=== PATIENT | female | born 1975 | race Caucasian/White ===

== ENCOUNTER → 2020-04-14 12:13 | Outpatient (CLI) | payer OTHER, SELFPAY ==
--- NOTE | ~2020-04-14 | XR_ITS ---
XR knee RT 3V 04/14/2020 12:29 Indication: Right knee pain Procedure: 3 views right knee Comparison: No prior studies for comparison. Findings: There is mild osteoarthritis of the right knee. No acute fracture or traumatic malalignment . No significant joint effusion. No radiopaque foreign bodies. Impression: 1: Mild osteoarthritis of the right knee. Reviewed, dictated and finalized at location B. Impression: 1: Mild osteoarthritis of the right knee.
== END ==
PROVIDERS: PCP Family Medicine; Visit Provider Physician Assistant
DX: S89.90XA Unspecified injury of unspecified lower leg, initial encounter (principal); M17.11 Unilateral primary osteoarthritis, right knee
CPT/HCPCS: 73562

== ENCOUNTER 2020-07-18 16:58 | Outpatient (CLI) | payer OTHER, SELFPAY ==
--- NOTE | ~2020-07-18 | MR_ITS ---
EXAMINATION: MR knee RT wo con DATE: 07/18/2020 19:02 INDICATION: Right knee pain. TECHNIQUE: Magnetic resonance imaging (MRI) of the right knee was performed without intravenous contr ast. Sequences included axial PD-weighted FS FSE, coronal PD-weighted FSE and PD-weighted FS FSE, sag ittal PD-weighted FSE, and sagittal T2-weighted FS FSE. COMPARISON: Right knee radiographs 04/14/2020 FINDINGS: Medial compartment: Medial meniscus is normal. There is cartilage surface irregularity of tibial condyle and femoral cond yle. There are tiny marginal osteophytes. Lateral compartment: There is a horizontal tear involving anterior horn and body of lateral meniscus. There is full-thickn ess cartilage loss of tibial condyle and femoral condyle involving the central articular surfaces wit h mild subchondral edema-like marrow signal intensity. There is extensive partial thickness cartilage loss of femoral condyle and tibial condyle. Osteophytes are noted. Patellofemoral compartment: There is full-thickness cartilage loss of patellar lateral facet and median ridge and shallow partial -thickness cartilage loss of patellar medial facet. There is cartilage surface irregularity of trochl ea. Osteophytes are noted. Ligaments and tendons: Anterior and posterior cruciate ligaments are normal. Medial collateral ligament is normal. There are changes of prior sprain of fibular collateral ligament characterized by thickening and increased sig nal intensity proximally. There is mild patellar tendinopathy. Fluid: There is a large knee joint effusion. There is moderate prepatellar and superficial infrapatellar bur sitis. There is subcutaneous edema about the knee. IMPRESSION: 1. Severe chondrosis of lateral and patellofemoral compartments and mild chondrosis of medial compart ment. 2. Tear of the lateral meniscus. 3. Large knee joint effusion. Reviewed, dictated and finalized at location A. 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 Severe chondrosis of lateral and patellofemoral compartments and mild chondr osis of medial compartment. 2. Tear of the lateral meniscus. 3. Large knee joint effusion.
== END 2020-07-18 16:59 ==
LOC: MICIMG 17:01
PROVIDERS: PCP Family Medicine; Visit Provider Nurse Practitioner Family
DX: M25.461 Effusion, right knee (principal); S83.281A Other tear of lateral meniscus, current injury, right knee, initial encounter; X58.XXXA Exposure to other specified factors, initial encounter
CPT/HCPCS: 73721

== ENCOUNTER 2020-08-08 11:15 | Outpatient (CLI) | payer OTHER, SELFPAY ==
--- NOTE | 2020-08-08 11:19 | ECG_ITS ---
Measurements Intervals [place] Rate: 86 P: 42 CT: 180 QRS: 1 QRSD: 119 T: 0 QT: 351 QTc: 421 Interpretive Statements SINUS RHYTHM INCOMPLETE RIGHT BUNDLE BRANCH BLOCK VOLTAGE CRITERIA FOR LVH BORDERLINE ECG Electronically Signed On 08-08-2020 12:04:15 RECLAIMER by Dez Ray D.O.
[2020-08-08 12:19] LABS: Anion Gap 6 mmol/L (8-16); Blood Urea Nitrogen 12 mg/dL (7-17); Calcium 9.2 mg/dL (8.4-10.2); Carbon Dioxide 32 mmol/L (22-30); Chloride 99 mmol/L (98-107); Estimated Glomerular Filt Rate > 60; Glucose 129 mg/dL (65-105); Potassium 3.7 mmol/L (3.4-5.0); Sodium 137 mmol/L (137-145)
[2020-08-08 12:28] LABS: Hemoglobin A1C 6.5 % (<5.7)
== END 2020-08-08 11:16 | disposition home or self-care (01) ==
LOC: ANHSURGERY 11:19
PROVIDERS: Anesthesiology; PCP Family Medicine; Visit Provider Orthopaedic Surgery
DX: Z01.818 Encounter for other preprocedural examination (principal); Z20.822 Contact with and (suspected) exposure to COVID-19; E11.9 Type 2 diabetes mellitus without complications
CPT/HCPCS: 36415; 80048; 83036; 93005

== ENCOUNTER 2020-08-09 04:28 | Outpatient (CLI) | payer OTHER, SELFPAY ==
[2020-08-09 19:32] LABS: SARS-CoV-2 RNA PCR Negative
== END 2020-08-09 04:29 | disposition home or self-care (01) ==
LOC: ANHCOVIDDT 04:28
PROVIDERS: PCP Family Medicine; Visit Provider Orthopaedic Surgery
DX: Z01.812 Encounter for preprocedural laboratory examination (principal); Z20.822 Contact with and (suspected) exposure to COVID-19
CPT/HCPCS: C9803; U0003

== ENCOUNTER 2020-08-13 02:12 | Day surgery (SDC) | payer OTHER, SELFPAY ==
[2020-08-06 18:40] VITALS: BMI 54.8
[2020-08-13] VITALS (11 sets, daily range): BP systolic 102–147; BP diastolic 62–95; PULSE 76–91; RESP 16–20; TEMP 36.6–36.8; O2SAT 92–100
--- NOTE | 2020-08-13 07:23 | WPDHPUPDATE1 ---
History and Physical Update Update Date/Time: 08/13/20 07:23 History and Physical has been reviewed, including an updated exam of the patient. There are NO changes in the patient's condition. Risks, benefits, and alternatives have been discussed and questions answered. Patient agrees to proceed with procedure.
[2020-08-13] MEDS: LACTATED RINGERS 1,000 ML 30 ML IV CONT ×2 (08:45→13:04)
--- NOTE | 2020-08-13 09:04 | WPDANESEPPF ---
Anes - Initial Pre Proc Eval Procedure: Operation Date: 08/13/20 10:00 Proposed Procedures p Right Knee Arthroscopy, Proceed As Indicated - Fernandez Marmolejo MD Date/Time: 08/13/20 09:04 Surgeon: Fernandez Marmolejo MD Pre Op Diagnosis: Right Knee Lateral Meniscus Tear Patient Data Age: 44 Gender: F Height: 5 ft 2.5 in Weight: 138.35 kg Allergies Allergy/AdvReac Type Severity Reaction Status Date / Time Penicillins AdvReac Mild ITCHY RASH Verified 08/08/20 14:49 morphine AdvReac Unknown DIFFICULT Verified 08/08/20 14:49 TO AROUSE Home Medications Medication Instructions Recorded Confirmed Type fluticasone propionate [Flonase 1 spray NASAL DAILY #9.9 ml 08/01/19 08/10/20 Rx Allergy Relief] fluticasone propionate 110 1 puff INHALATION Q12H #12 gm 09/21/19 08/10/20 Rx mcg/actuation HFA aerosol inhaler blood sugar diagnostic #100 each 01/01/20 08/10/20 Rx pen needle, diabetic 31 gauge x See Rx Instructions .ROUTE 03/17/20 08/10/20 Rx 5/16 .COMPLEX #100 each insulin lispro protamine-lispro See Rx Instructions .ROUTE 05/22/20 08/10/20 Rx 100 unit/mL (75-25) subcutaneous .COMPLEX #33 milliliter pen loratadine [Claritin] 10 mg PO DAILY 08/06/20 08/10/20 History albuterol sulfate 90 mcg/actuation 2 puff INHALATION QID PRN #18 g 08/08/20 08/08/20 Rx aerosol inhaler chlorhexidine gluconate 4 % 1 applic TOPICAL ONCE #237 ml 08/08/20 08/08/20 Rx topical liquid Patient hx anesthesia problems: none Family hx anesthesia problems: none PMFSH Past Medical History Medical History Asthma Chondromalacia, patella Degenerative joint disease of knee Diabetes mellitus Effusion of right knee joint Lateral meniscus tear Obesity Patellofemoral syndrome Right knee injury Right knee pain Shortness of breath Vision abnormalities Family History Family History Grandparent Hypertension Carcinoma of colon Family history of type 2 diabetes mellitus Other Diabetes mellitus Family history of arthritis Family history of congestive heart failure Family history of coronary artery disease Family history of malignant neoplasm Family history of malignant neoplasm of breast Social History Social History Smoking packs per day: 0.5 Smoking cigarettes per day: 10.0 Years smoked: 6 Smoking pack-years: 3.00 Smoking status: Former smoker Tobacco type: cigarettes Second hand tobacco smoke exposure: No Smoking end date: 09/01/03 Alcohol intake: current Alcohol use details: 1 GLASS WINE/YEAR Substance use: former Other substance usage details: CBD GUMMIES 2019 FOR KNEE PAIN-DID NOT WORK SO STOPPED Last use: JUL, 2020 Living arrangements: with family Gender identity (if verbalized by the patient): Female Spiritual care concerns: No Anes - Eval Final PreProcedure Day of Procedure 08/13/20 09:04 Patient weight: morbidly obese Heart: regular rate and rhythm Lungs: clear to auscultation Airway: Mallampati scale class II Neurological: alert and oriented Last oral intake: >/= 8 hours ASA classification: III Emergent: no Anesthetic plan: proceed Anesthesia type and monitoring: general LMA and standard monitoring Informed Consent: The patient's anesthetic plan and its attendant risks and benefits were discussed with the patient/family/POA. Questions were solicited and answers provided to the satisfaction of the patient/family/POA.
[2020-08-13] MEDS: ACETAMINOPHEN 500 MG TABLET 1000 MG PO (09:56)
[2020-08-13] MEDS: CELECOXIB 200 MG CAPSULE PO (09:57)
[2020-08-13 10:27] LABS: Glucose Point of Care 162 (65-105)
[2020-08-13] MEDS: CLINDAMYCIN 900 MG/D5W 50 ML 900 MG/50 ML PIGGYBACK 50 MG IVPB (10:44)
[2020-08-13] MEDS: BUPIVACAINE HCL 0.5% PF 30 ML VIAL INFILTRATE (11:20)
--- NOTE | 2020-08-13 11:57 | P.OP_ITS ---
Procedure Note - Detailed Date of procedure: 08/13/20 Pre-op diagnosis: Right Knee Lateral Meniscus Tear, CHONDROMALACIA Post-op diagnosis: same Procedure performed: RIGHT KNEE SCOPE WITH PARTIAL LATERAL MENISCECTOMY AND MAJOR SYNOVECTOMY Description of procedure: PATIENT WAS TAKEN TO THE OR. RIGHT LEG WAS PREPPED AND DRAPED STERILE. TROCARS WERE PLACED IN THE USUAL FASHION. CAMERA WAS INTRODUCED. THERE WAS CHONDROMALACIA TO THE PATELLA FEMORAL JOINT. THERE WAS A LOT OF SYNOVITIS IN ALL COMPARTMENTS. THE MEDIAL COMPARTMENT MINIMAL CHONDROMALACIA TO THE MED FEMORAL CONDYLE. THERE WAS NO MEDIAL MENISCUS TEAR. THE ACL WAS INTACT. THE LATERAL MENISCUS WAS TORN AT THE ANTERIOR HORN AND UNDERWENT RESECTION OF ABOUT 30 % THE LAT FEMORAL CONDYLE UNDERWENT CHONDROPLASTY. THERE WAS AN OSTEOCHONDRAL DEFECT WITH FULL THICKNESS TEAR AT DIMITRI TH THE FEMORAL CONDYLE AND LATERAL PLATEAU. A SYNOVECTOMY WAS PREFORMED. THE PATELLO FEMORAL JOINT UNDERWENT CHONDROPLASTY. SYNOVECTOMY WAS PREFORMED IN THE SUPERIOR MEDIAL COMPARTMENT. THE WOUNDS WERE APPROXIMATED WITH 4.0 NYLON. STERILE DRESSING WAS APPLIED. PATIENT WAS EXTUBATED. Anesthesia: GLMA Surgeon: Fernandez Marmolejo MD Estimated blood loss (mL): 5 Complications: No immediate complications Condition: stable Disposition: PACU
[2020-08-13] MEDS: fentaNYL CITRATE INJ (*CRX) 100 MCG/2 ML VIAL 25 MCG IV PUSH ×8 (12:16→12:46)
[2020-08-13 12:18] LABS: Glucose Point of Care 198 (65-105)
[2020-08-13] MEDS: HYDROmorphone HCL INJ (*CRX) 1 MG/ML SYR 0.5 MG IV PUSH ×2 (12:53→14:24)
[2020-08-13] MEDS: oxyCODONE HCL (*CRX) 5 MG TAB IR PO (13:13)
[2020-08-13] MEDS: KETOROLAC 30 MG/ML VIAL (*BKC) IV PUSH (13:39)
== END 2020-08-13 15:25 | disposition home or self-care (01) ==
PROVIDERS: PCP Family Medicine; Visit Provider Orthopaedic Surgery
PROC: (CPT 29870; principal; 2020-08-13 10:00)
DX: S83.281A Other tear of lateral meniscus, current injury, right knee, initial encounter (principal); X58.XXXA Exposure to other specified factors, initial encounter; M94.261 Chondromalacia, right knee; M65.861 Other synovitis and tenosynovitis, right lower leg; J45.909 Unspecified asthma, uncomplicated; E11.9 Type 2 diabetes mellitus without complications; E66.01 Morbid (severe) obesity due to excess calories; Z68.43 Body mass index [BMI] 50.0-59.9, adult; Z79.4 Long term (current) use of insulin; Z87.891 Personal history of nicotine dependence
CPT/HCPCS: 29881; 29876; 36415; 80048; 83036; 93005; A9270; C9803; J1100; J1170; J1885; J2250; J2405; J2704; J3010; J7120; U0003

== ENCOUNTER 2023-03-20 11:47 | Emergency (ER) | payer OTHER, SELFPAY ==
[2023-03-20 11:48] VITALS: BP 102/74; PULSE 93; RESP 18; TEMP 36.6; O2SAT 100
--- NOTE | 2023-03-20 12:05 | ED.BACK ---
HPI - Back Pain/Injury General Chief Complaint: Back Pain/Injury Stated Complaint: back pain Time Seen by Provider: 03/20/23 11:57 History of Present Illness HPI Narrative: Patient is a 47-year-old female with history of diabetes, recurrent back pain here with acute lower back pain. She notes that usually about once a year she has back pain that lasts a day or 2 and resolved after manipulation to her chiropractor. She states that about 1 week ago she was sitting in a chair in a emergency department with a family member for about 12 hours and the next day began having significant pain. the pain is located in her right lower back radiating into her right gluteus muscle and down into her right leg. It is associated with a pins and needle sensation in her right leg and worse with movement. She notes that lying on her stomach seems to help the pain but any other movement seems to worsen it. she went to her chiropractor last week and they performed some manipulation which helped initially but her pain returned when she began ambulating again. This pain is similar in character as her prior back issues only worse and more persistent. Her only prior imaging was x-rays performed her chiropractor in the past. She was prescribed Flexeril 3 days ago from her primary care doctor. This has been helping temporarily, last dose was taken 5 mg at 11:00 a.m. this morning. She additionally took 400 mg of ibuprofen around 10:00 a.m. this morning. She denies any bowel or bladder incontinence, no saddle anesthesia, no history of IV drug use, no history of cancer. No fever chills. No falls or trauma. No urinary symptoms. Related Data Home Medications Medication Instructions Recorded Confirmed loratadine 10 mg tablet (Claritin) 10 mg PO DAILY 08/06/20 12/31/22 lansoprazole 30 mg capsule,delayed 30 mg PO DAILY PRN 09/11/21 12/31/22 release (Prevacid) dicyclomine 10 mg capsule 10 mg PO QID PRN 12/31/22 12/31/22 insulin lispro protamine-lispro 30 unit subcut BID 12/31/22 12/31/22 100 unit/mL (75-25) subcutaneous pen (Humalog Mix 75-25 KwikPen) Allergies Allergy/AdvReac Type Severity Reaction Status Date / Time Penicillins Allergy Severe Hives Verified 03/20/23 11:48 morphine AdvReac Unknown DIFFICULT Verified 03/20/23 11:48 TO DIANELYS Review of Systems Review of Systems: All systems reviewed & are unremarkable except as noted in HPI and below PMFSH Past Medical History Medical History Anemia Asthma BMI 60.0-69.9, adult Body mass index (BMI) of 50.0 to 59.9 in adult Chondromalacia, patella Degenerative joint disease of knee Diabetes mellitus Effusion of right knee joint History of COVID-19 Lateral meniscus tear Obesity Patellofemoral syndrome Right knee DJD Right knee injury Right knee pain Screening mammogram, encounter for Shortness of breath Vision abnormalities Surgical History Surgical History H/O meniscectomy of right knee Family History Family History Grandparent Hypertension Carcinoma of colon Family history of type 2 diabetes mellitus Other Diabetes mellitus Family history of arthritis Family history of congestive heart failure Family history of coronary artery disease Family history of malignant neoplasm Family history of malignant neoplasm of breast Social History Social History Smoking packs per day: 0.5 Smoking cigarettes per day: 10.0 Years smoked: 6 Smoking pack-years: 3.00 Smoking status: Former smoker Tobacco type: cigarettes Second hand tobacco smoke exposure: No Smoking end date: 09/01/03 Alcohol intake: current Alcohol use details: 1 GLASS WINE/YEAR Substance use: never Substance use type: does not use Lack of Transportation:
[2023-03-20] MEDS: HYDROcodone/acetaminophen (*CRX) 5-325 MG TABLET 1 TAB PO (12:50)
== END 2023-03-20 14:41 | disposition home or self-care (01) ==
PROVIDERS: Emergency Provider Student in an Organized Health Care Education/Training Program; PCP Family Medicine
DX: M54.41 Lumbago with sciatica, right side (principal); E11.9 Type 2 diabetes mellitus without complications; J45.909 Unspecified asthma, uncomplicated; M17.11 Unilateral primary osteoarthritis, right knee; E66.9 Obesity, unspecified; Z68.42 Body mass index [BMI] 45.0-49.9, adult; Z86.16 Personal history of COVID-19; Z86.2 Personal history of diseases of the blood and blood-forming organs and certain disorders involving the immune mechanism; Z87.891 Personal history of nicotine dependence; Z79.4 Long term (current) use of insulin
CPT/HCPCS: 99283; A9270

== ENCOUNTER → 2023-03-21 14:32 | Outpatient (CLI) | payer OTHER, SELFPAY ==
--- NOTE | ~2023-03-21 | XR_ITS ---
EXAMINATION: XR lumbar spine min 4V DATE: 03/21/2023 14:55 INDICATION: Sciatica, unspecified TECHNIQUE: Anteroposterior, lateral, and bilateral oblique views of the lumbar spine, and cone-down l ateral view of the lumbosacral junction were obtained. COMPARISON: CT, 04/03/2016 FINDINGS: There is chronic moderate loss of intervertebral disc space height at L5-S1. Bone alignment is normal. There is no fracture. The vertebral body heights are maintained. Small degenerative osteo phytes project from the anterior endplates of multiple vertebral bodies. There is moderate facet join t osteoarthritis at L5-S1. IMPRESSION: 1. Chronic moderate lumbar spondylosis at L5-S1 without acute findings. Reviewed, dictated and finalized at location A.
== END ==
PROVIDERS: PCP Family Medicine; Visit Provider Physician Assistant Medical
DX: M54.30 Sciatica, unspecified side (principal); M47.897 Other spondylosis, lumbosacral region
CPT/HCPCS: 72110

== ENCOUNTER 2023-04-07 10:10 | Outpatient (CLI) | payer OTHER, SELFPAY ==
--- NOTE | ~2023-04-07 | MR_ITS ---
MRI of the lumbar spine Clinical History: Sciatica Technique: Axial T2-weighted images, and sagittal T1-weighted, T2-weighted, and T2 fat-sat images wer e acquired. Following intravenous administration of 20 cc MultiHance gadolinium, T1-weighted fat-sat imaging was performed in the axial and sagittal planes. Findings: There is no fracture or subluxation of the lumbar spine. Vertebral bodies maintain normal h eight and alignment. No suspicious bone marrow signal abnormality seen. At L1-L2, L2-L3, there is no disc bulge or herniation. No spinal canal stenosis or neural foraminal n arrowing at these levels. At L3-L4, there is mild diffuse disc bulge. No central canal stenosis. There is mild left neural fora jena narrowing. Right neural foramen preserved. At L4-L5, there is mild disc bulge. No central canal stenosis. There is mild right neural foraminal n arrowing. Left neural foramen preserved. At L5-S1, there is large disc herniation/protrusion centrally, which conjunction with facet arthropat hy, results in moderate central canal stenosis. Right neural foramen is moderately narrowed. Left tony ral foramen is preserved. Paravertebral soft tissues are unremarkable. No abnormal postcontrast enhancement seen. Impression: Large central disc herniation/protrusion at L5-S1, which contribute to moderate central canal stenosi s and moderate right neural foraminal narrowing at this level. Reviewed, dictated and finalized at [facility]. Impression: Large central disc herniation/protrusion at L5-S1, which contribute to moderate central canal stenosis and moderate right neural foraminal narrowing at this l evel.
== END 2023-04-07 10:11 ==
PROVIDERS: PCP Family Medicine; Visit Provider Physician Assistant Medical
DX: M54.30 Sciatica, unspecified side (principal); M51.27 Other intervertebral disc displacement, lumbosacral region
CPT/HCPCS: 72158; A9577

== ENCOUNTER → 2023-05-14 10:16 | Outpatient (CLI) | payer OTHER, SELFPAY ==
--- NOTE | ~2023-05-14 | MM_ITS ---
EXAMINATION: MM screening carl BI w charles HISTORY: Screening mammogram TECHNIQUE: Craniocaudal and mediolateral oblique 3-D tomosynthesis images were obtained and synthetic 2-D images were generated. CAD analysis was submitted and interpreted. COMPARISON: 04/10/2019, 02/24/2017 bilateral screening mammogram examinations BREAST PARENCHYMAL COMPOSITION: The breasts are almost entirely fatty. FINDINGS: There is no evidence of suspicious mass, calcification, or architectural distortion to sugg est malignancy in either breast. There has been no suspicious interval change. IMPRESSION: 1. No mammographic evidence of malignancy. 2. Recommend routine screening mammography in one year. BI-RADS Category 1: Negative Reviewed, dictated and finalized at location B.
== END ==
PROVIDERS: PCP Family Medicine; Visit Provider Obstetrics & Gynecology
DX: Z12.31 Encounter for screening mammogram for malignant neoplasm of breast (principal)
CPT/HCPCS: 77063; 77067

== ENCOUNTER 2024-05-01 10:27 | Outpatient (CLI) | payer OTHER, SELFPAY ==
--- NOTE | ~2024-05-01 | XR_ITS ---
SINGLE AP VIEW PELVIS Ordering provider: Yolanda Aviles MD History: . Sacroiliitis,not elsewhere classified . Comparison: None. FINDINGS: BONES: No acute fracture or dislocation. HIP JOINT SPACES: Normal. SACROILIAC JOINT SPACES/LUMBAR SPINE: The sacroiliac joint spaces are normal. Normal visualized lower lumbar spine. PUBIC SYMPHYSIS: Normal. SOFT TISSUES: Normal. IMPRESSION: No acute osseous abnormality pelvis. Reviewed, dictated and finalized at location A.
== END 2024-05-01 10:28 | disposition home or self-care (01) ==
PROVIDERS: PCP Family Medicine; Visit Provider Physical Medicine & Rehabilitation Pain Medicine
DX: M46.1 Sacroiliitis, not elsewhere classified (principal)
CPT/HCPCS: 72190

== ENCOUNTER 2024-06-02 08:20 | Outpatient (CLI) | payer OTHER, SELFPAY ==
--- NOTE | ~2024-06-02 | MR_ITS ---
MRI of the lumbar spine Clinical History: Radiculopathy, back pain Technique: Axial T2-weighted images, and sagittal T1-weighted, T2-weighted, and T2 fat-sat images wer e acquired. COMPARISON: 04/07/2023 FINDINGS: There is no fracture or subluxation lumbar spine. Vertebral bodies maintain normal height a nd alignment. Osseous alignment unchanged. No suspicious bone marrow signal abnormality seen. At L1-L2, there is moderate degenerative disc narrowing. There is mild to moderate facet arthropathy. No disc bulge or herniation. No spinal canal stenosis or neural foraminal narrowing. At L2-L3, there is minimal disc bulge with moderate facet arthropathy. No central canal stenosis or n eural foraminal narrowing. L3-L4, there is minimal disc bulge with probable protrusion at the left foraminal region. There is mo derate facet arthropathy. No central canal stenosis. There is mild left neural foraminal narrowing. R ight neural foramen preserved. At L4-L5, there is minimal disc bulge with moderate to advanced facet arthropathy. No central canal s tenosis. There is mild right neural foraminal narrowing. Left neural foramen preserved. At L5-S1, there is central to right paracentral disc extrusion, similar to prior exam. There is moder ate facet arthropathy. There is mild central canal stenosis. There is mild right neural foraminal hodan rowing. There is probable impingement of the descending S1-S2 level nerve root of right-sided particu lar. Paravertebral soft tissues are unremarkable. Impression: Central to right paracentral disc extrusion at L5-S1 is similar to prior exam, contributing to canal stenosis or neural foraminal narrowing, probably impinging the descending right-sided S1-S2 level ner ve root. Additional mild degenerative changes in the lumbar spine otherwise, as above. Reviewed, dictated and finalized at location . [employer]ER Impression: Central to right paracentral disc extrusion at L5-S1 is similar to prior exam, contributing to canal stenosis or neural foraminal narrowing, probably impingin g the descending right-sided S1-S2 level nerve root. Additional mild degenerative changes in the lumbar spine otherwise, as above.
== END 2024-06-02 08:21 | disposition home or self-care (01) ==
PROVIDERS: PCP Family Medicine; Visit Provider Physical Medicine & Rehabilitation Pain Medicine
DX: M51.27 Other intervertebral disc displacement, lumbosacral region (principal); M54.16 Radiculopathy, lumbar region
CPT/HCPCS: 72148